=== PATIENT | male | born 1955 | race African-American/Black ===

== ENCOUNTER 2019-08-15 20:39 | Emergency (ER) | payer OTHER ==
[~2019-08-15] VITALS: Ht 170.2 cm; Wt 83.5 kg
[2019-08-15 21:37] LABS: HEMATOCRIT 41.2 % (42.0-52.0); HEMOGLOBIN 14.3 gm/dL (14.0-18.0); MCH 32.2 pg (26.0-34.0); MCHC 34.8 g/dL (28.0-37.0); MCV 92.5 fL (80.0-100.0); RBC 4.45 mil/uL (4.50-6.00); RDW 13.1 % (10.5-14.5); WBC 6.6 thou/uL (4.0-11.0)
[2019-08-15 21:46] LABS: ANION GAP 9 mmol/L (7-16); BUN 17 mg/dL (7-18); CALCIUM 8.6 mg/dL (8.5-10.1); CHLORIDE 100 mmol/L (98-107); CO2 25 mmol/L (21-32); CREATININE 1.2 mg/dL (0.7-1.3); GLUCOSE 229 mg/dL (74-106); POTASSIUM 3.9 mmol/L (3.5-5.1); SODIUM 134 mmol/L (136-145)
[2019-08-15] MEDS ORDERED: FAMOTIDINE 20 M20 MG PO (21:54)
[2019-08-15] MEDS ORDERED: NEURONTIN 300M300 M2 PO (21:55)
[2019-08-15] MEDS ORDERED: METFORMIN HCL500 M3 PO (21:55)
[2019-08-15] MEDS ORDERED: FLOMAX0.4 MG PO (21:55)
[2019-08-15] MEDS ORDERED: SERTRALINE HCL100 MG PO (21:55)
[2019-08-15 21:56] LABS: ALBUMIN 3.6 g/dL (3.4-5.0); DIRECT BILIRUBIN 0.2 mg/dL (<0.1-0.3); SGOT 30 U/L (15-37); SGPT 40 U/L (30-65); TOTAL PROTEIN 7.4 g/dL (6.4-8.2); TROPONIN-I <0.06 ng/mL (<0.06)
[2019-08-16] MEDS ORDERED: PROAIR HFA8.5 GM INH (01:41)
[2019-08-16 01:53] VITALS: BP 178/101
--- NOTE | 2019-08-16 11:08 | EKG ---
[address] [facility] [place] [address] ELECTROCARDIOGRAM REPORT Name: TATO BECK Room #: [id number] Admission: 08/15/19 Attend Phys: Discharge: 08/16/19 Date of : 59 Report #: [id number] THIS REPORT FOR: //name// [facility] ED Test Date: 2019-08-15 Test Time: 20:46:34 Pat Name: TATO KERNepartment: Room: Gender: M Playground Director: HYUN : 1955 Requested By: Pauline García Order Number: [id number] MD: Jose Eduardo Speasr Measurements Intervals [place] Rate: 88 P: 8 MS: 169 QRS: 254 QRSD: 106 T: 5 QT: 403 QTc: 488 Interpretive Statements Sinus rhythm Poor R wave progression Leftward axis Nonspecific intraventricular conduction delay No previous ECG available for comparison Electronically Signed On 08-16-2019 11:07:59 CDT by Jose Eduardo Spears [email or web address] <ELECTRONICALLY SIGNED> By: Jose Eduardo Spears MD, [facility] 08/16/19 1107 2046 45 Jose Eduardo Spears MD, FACC /EPI
== END 2019-08-16 01:52 | disposition home or self-care (01) ==
LOC: ER 20:39
PROVIDERS: Emergency Medicine
DX: R07.89 Other chest pain (principal); R06.02 Shortness of breath; I10 Essential (primary) hypertension; E78.00 Pure hypercholesterolemia, unspecified; E11.9 Type 2 diabetes mellitus without complications

== ENCOUNTER → 2021-06-15 | Outpatient (CLI) | payer OTHER, BC ==
[~2021-06-15] MED LIST: FAMOTIDINE 20 M20 MG PO; FLOMAX0.4 MG PO; METFORMIN HCL500 M3 PO; NEURONTIN 300M300 M2 PO; PROAIR HFA8.5 GM INH; SERTRALINE HCL100 MG PO
== END ==
LOC: SJCVCIMAG 07:43
PROVIDERS: ATTEND Internal Medicine
DX: I51.7 Cardiomegaly (principal); Z79.84 Long term (current) use of oral hypoglycemic drugs; Z79.899 Other long term (current) drug therapy

== ENCOUNTER → 2021-07-27 | Outpatient (CLI) | payer OTHER | LOC: RAD 13:22 → SPEECH 13:22 → EDSTATUS 13:30 | PROVIDERS: ATTEND Family Medicine | DX: R05.9 Cough, unspecified (principal) ==